=== PATIENT | male | born 1950 | race Caucasian/White ===

== ENCOUNTER → 2017-07-14 | Outpatient (CLI) | payer OTHER ==
[~2017-07-14] MED LIST: PERCOCET5/325 PO
--- NOTE | ~2017-07-14 | ST ---
Unit #: [id number] #: [id number] Patient: HERMINIA COSTELLO JR [id number] [address] [address] [id number] O MR#: [id number] NAME: HERMINIA COSTELLO JR : 1950 SEX: M STUDY DATE/TIME: 07/15/2017 UNIT: [facility] ROOM: STUDY DESCRIPTION: Stress ECG Attending Physician: Bibi Aly M.D. Referring Physician: Bibi Aly M.D. Primary Care Physician: Bibi Aly M.D. CARDIOLOGY REPORT EXAM Stress ECG. INDICATION Dyspnea. SUMMARY Patient exercised on Cesar protocol to maximal effort. Resting ECG shows right bundle branch block with secondary ST changes in AVL. With stress, there was 2-mm upsloping ST depression in leads II, III, AVF, V4 through V6. These changes occurred at a heart rate of approximately 148 at approximately 4 minutes, 47 seconds of exercise. These changes began to resolve during continued exercise with mainly J point depression and 1-mm upsloping ST depression in leads V4 through V6, II, III and AVF. Changes entirely resolve by 2 minutes post exercise. At approximately 5 minutes post exercise, T waves became inverted in the anterolateral leads, V3 through V5. IMPRESSION 1. Moderately reduced exercise capacity based on the patient's age. 2. Heart rate increased from 75 to 148, good heart rate response. 3. Blood pressure increased, 170/80 to 220/80. 4[address] ST changes suggest ischemia. Would consider repeat study with imaging, either stress echo or stress nuclear study. Dictated by... Jameson Worthington/tien TD: 07/16/2017 09:14 JOB #: [id number] Unit #: [id number] #: [id number] Patient: HERMINIA COSTELLO JR CARDIOLOGY REPORT Page 1 of 1 X Feliz Hwang MD CARDIOLOGY REPORT
== END | disposition home or self-care (01) ==
LOC: CEKG 08:11
DX: I45.10 Unspecified right bundle-branch block (principal); R06.00 Dyspnea, unspecified
CPT/HCPCS: 93017